=== PATIENT | female | born 1995 | race Two or more races ===

== ENCOUNTER 2025-03-16 19:23 | Emergency (ER) | payer MEDICAID ==
[~2025-03-16] VITALS: Ht 157.5 cm; Wt 56.7 kg
[2025-03-16 19:26] VITALS: BP 124/76
[2025-03-16] MEDS: IV NORMAL SALINE 1000 ML BAG IV ONE (19:45)
[2025-03-16] MEDS ORDERED: LORAZEPAM 0.5 MG TABLET PO ONE (19:45)
[2025-03-16 19:55] LABS: PLATELET COUNT (AUTO) 478 K/uL (179-408); RED BLOOD CELL COUNT(AUTO) 4.35 MIL/uL (3.63-4.92); RED CELL DISTRIBUTION WIDTH 16.7 % (12.3-17.7); WHITE BLOOD COUNT (AUTO) 6.5 K/uL (3.8-11.8)
[2025-03-16] MEDS ORDERED: LORAZEPAM 0.5 MG TABLET ONE (19:56)
[2025-03-16 20:01] LABS: CREATININE 0.6 mg/dL (0.6-1.3); SODIUM SERUM 145.0 mmol/L (136-145); UREA NITROGEN, BLOOD 13.0 mg/dL (7-18)
[2025-03-16 20:08] LABS: ASPARTATE AMINOTRANSFERASE 12.0 U/L (15-37); TOTAL PROTEIN, SERUM 8.9 g/dL (6.4-8.2)
[2025-03-16 20:10] LABS: ETHANOL 245.0 MG/DL (0-10)
[2025-03-16] MEDS ORDERED: MAGNESIUM CHLORIDE 64 MG TABLET.SA PO ONE (20:30)
[2025-03-16] MEDS: LORAZEPAM 0.5 MG TABLET PO ONE (20:30)
[2025-03-16] MEDS: POTASSIUM CHLORIDE 20 MEQ TAB.PRT.SR PO ONE (21:20)
[2025-03-16] MEDS ORDERED: MAGNESIUM SULFATE/D5W 100 ML ONE ×2 (21:27→21:32)
[2025-03-16] MEDS: MAGNESIUM SULFATE/D5W 100 ML IV ONE (21:32)
[2025-03-16] MEDS ORDERED: CLONAZEPAM 0.5 MG TABLET ONE (23:29)
[2025-03-16] MEDS: CLONAZEPAM 0.5 MG TABLET PO ONE (23:30)
[2025-03-17 01:23] VITALS: BP 130/65; TEMP 98.2; O2SAT 97
[2025-03-17 02:02] LABS: *BILIRUBIN,URIN NEGATIVE (NEGATIVE); *BLOOD, URINE 3+ (NEGATIVE); *CLARITY,URINE CLEAR (CLEAR); *COLOR,URINE LIGHT YELLOW (YELLOW); *KETONES,URINE NEGATIVE (NEGATIVE); *PROTEIN,URINE NEGATIVE (NEGATIVE); *UROBILINOGEN,URINE 0.2 E.U./dl (NORMAL); LEUKOCYTE ESTERASE ,URINE TRACE (NEGATIVE); NITRITE, URINE NEGATIVE (NEGATIVE); UGLUCOSE NEGATIVE (NEGATIVE)
[2025-03-17 02:10] LABS: *URINE HCG, QUAL NEGATIVE (NEGATIVE)
[2025-03-17 02:13] LABS: SQUAMOUS EPITHELIAL CELL,UR FEW /HPF (NONE SEEN)
[2025-03-17 02:15] LABS: *AMPHETAMINE, URINE NEGATIVE (NEGATIVE); *BARBITURATE, URINE NEGATIVE (NEGATIVE); *BENZODIAZEPINE, URINE NEGATIVE (NEGATIVE); *CANNABINOID, URINE NEGATIVE (NEGATIVE); *COCCAINE, URINE NEGATIVE (NEGATIVE); *OPIATE, URINE NEGATIVE (NEGATIVE); *PHENCYCLIDINE SCREEN,URINE NEGATIVE (NEGATIVE); FENTANYL, URINE NEGATIVE (NEGATIVE)
== END 2025-03-17 01:23 | disposition home or self-care (01) ==
LOC: ER 19:23
DX: F10.129 Alcohol abuse with intoxication, unspecified (principal); G40.909 Epilepsy, unspecified, not intractable, without status epilepticus; Y90.8 Blood alcohol level of 240 mg/100 ml or more
CPT/HCPCS: 80076; 80048; 85025; 36415; 99284; 96361; 96365; 80320; 80307; 81001; 84703; J3475 ×3; J7040; A4606; A4663; G0480